=== PATIENT | male | born 1945 | race Caucasian/White ===

== ENCOUNTER 2021-06-22 16:38 | Emergency (ER) | payer BC ==
[2021-06-22 16:55] LABS: #Basophils 0.1 thou/uL (0.0-0.2); #Eosinphils 0.2 thou/uL (0.0-0.7); #Monocytes 1.2 thou/uL (0.11-0.59); #Neutrophils 8.6 thou/uL (1.40-6.50); %Basophils 1.1 % (0.0-1.0); %Eosinophils 1.8 % (0.0-10.0); %Lymphocytes 8.9 % (21.0-51.0); %Monocytes 10.5 % (0.0-10.0); %Neutrophils 77.8 % (42.0-75.0); Hemoglobin 13.8 g/dL (14.0-18.0); Mean Corpuscular HGB CONC 31.9 g/dL (32.0-36.0); Mean Corpuscular Hemoglobin 33.2 pg (27.0-31.0); Mean Platelet Volume 6.4 fL (7.4-10.4); Platelet Count 348 thou/uL (130-400); RBC Distribution Width 13.2 % (11.5-14.5); Red Blood Cell (RBC) Count 4.15 mill/uL (4.70-6.10); White Blood Cell (WBC) Count 11.1 thou/uL (4.8-10.8)
[2021-06-22] MEDS ORDERED: Sodium Chloride 0.9% 1,000 ML ONE (16:55)
[2021-06-22 17:14] LABS: ALT (SGPT) 19 U/L (8-55); AST (SGOT) 20 U/L (5-34); Albumin 3.9 g/dL (3.4-4.8); Alkaline Phosphatase 78 U/L (40-110); Anion Gap 19 mmol/L (10-20); BUN (Urea Nitrogen) 52 mg/dL (8.4-25.7); Bilirubin, Total 0.7 mg/dL (0.2-1.2); Calc. Creatinine Clearance 0 mL/min (70-130); Calcium 9.9 mg/dL (7.8-10.44); Carbon Dioxide 20 mmol/L (23-31); Chloride 98 mmol/L (98-107); Globulin 3.2 g/dL (2.4-3.5); Glucose 87 mg/dL (83-110); Potassium 4.8 mmol/L (3.5-5.1); Protein, Total 7.1 g/dL (5.8-8.1); Sodium 132 mmol/L (136-145)
[2021-06-22 17:47] LABS: Bilirubin Negative (Negative); Blood, Urine Negative (Negative); Clarity Slightly Cloudy (Clear); Glucose, Urine (Dipstick) 250 mg/dL (Negative); Ketone, Urine 15 mg/dL (Negative); Leukocyte Negative (Negative); Nitrite Negative (Negative); Protein, Urine (Dipstick) Negative (Neg-Trace); Specific Gravity, Urine 1.025 (1.005-1.030); Urobilinogen 0.2 mg/dL (Less than 2)
[2021-06-22] MEDS ORDERED: Pantoprazole 40 MG VIAL ONE (18:15)
[2021-06-22] MEDS ORDERED: Sodium Chloride 0.9% 100 ML ONE (18:16)
[2021-06-22] MEDS ORDERED: HUM PROTHROMBIN CPLX(PCC)4FACT 1,000 UNIT VIAL ONE (18:30)
[2021-06-22] MEDS ORDERED: Sodium Chloride 0.9% 500 ML ONE (18:30)
[2021-06-22 18:45] LABS: INR-International Normal Ratio 1.3; Prothrombin Time 16.3 sec (12.0-14.7)
[2021-06-22 18:46] LABS: PTT 33.9 sec (22.9-36.1)
[2021-06-22] MEDS ORDERED: Human Prothrombin Complx(PCC) 500 UNIT VIAL ONE (19:32)
== END 2021-06-22 19:11 | disposition short-term general hospital (02) ==
LOC: NAV ERS 16:38
DX: K92.2 Gastrointestinal hemorrhage, unspecified (principal); I95.9 Hypotension, unspecified; R00.0 Tachycardia, unspecified; I10 Essential (primary) hypertension; E78.5 Hyperlipidemia, unspecified
CPT/HCPCS: 36430; 71045; 80053; 81003; 82274; 83605; 83880; 84484; 85025; 85610; 85730; 86850; 86900; 86901; 93005; 96374; 96375; C9113; J7030; J7050; J7168; P9016